=== PATIENT | female | born 1945 | race Caucasian/White ===

== ENCOUNTER 2020-09-25 17:32 | Outpatient (CLI) | payer MEDICARE, OTHER ==
[2020-09-25 18:17] LABS: #Basophils 0.1 10x3/uL (0.0-0.2); #Eosinphils 0.3 10x3/uL (0.0-0.5); #Monocytes 0.5 10x3/uL (0.0-1.1); #Neutrophils 5.3 10x3/uL (1.5-8.4); %Basophils 0.6 % (0.0-2.0); %Eosinophils 3.4 % (0.0-6.0); %Monocytes 6.1 % (0.0-10.0); %Neutrophils 67.6 % (40.0-75.0); Hemoglobin 11.7 g/dL (12.0-16.0); Mean Corpuscular HGB CONC 31.9 G/DL (32.0-36.0); Mean Corpuscular Hemoglobin 29.5 PG (27.0-33.0); Mean Corpuscular Volume 92.7 fl (80.0-100.0); Mean Platelet Volume 10.4 fl (7.4-10.4); Platelet Count 258 10x3/uL (130-400); RBC Distribution Width 13.1 % (11.5-14.5); Red Blood Cell (RBC) Count 3.96 10x6/uL (3.90-5.20); White Blood Cell (WBC) Count 7.8 10x3/uL (4.5-11.0)
[2020-09-25 18:28] LABS: Anion Gap 14 mmol/L (10-20); BUN (Urea Nitrogen) 25 mg/dL (9.8-20.1); Calc. Creatinine Clearance 0 mL/min (70-130); Calcium 9.7 mg/dL (7.8-10.44); Carbon Dioxide 27 mmol/L (23-31); Chloride 103 mmol/L (98-107); Glucose 89 mg/dL (83-110); Potassium 3.9 mmol/L (3.5-5.1); Sodium 140 mmol/L (136-145)
[2020-09-26 02:37] LABS: SARS-CoV-2 PCR by NAA Not Detected (NotDetected)
== END 2020-09-25 17:33 | disposition home or self-care (01) ==
LOC: LABBT 17:32
DX: Z01.818 Encounter for other preprocedural examination (principal); S62.102A Fracture of unspecified carpal bone, left wrist, initial encounter for closed fracture; M17.0 Bilateral primary osteoarthritis of knee; Z20.822 Contact with and (suspected) exposure to COVID-19
CPT/HCPCS: 80048; 85025; U0003; U0005; 87635; 93005; 93010

== ENCOUNTER 2020-09-29 06:01 | Day surgery (SDC) | payer MEDICARE, OTHER ==
[2020-09-26 11:08] VITALS: BMI 27.3
[2020-09-29] MEDS ORDERED: methylPREDNISolone Acetate 40 mg/ml Vial ONE (06:13)
[2020-09-29] MEDS ORDERED: Lidocaine 1% (PF) 30 ML VIAL ONE (06:13)
[2020-09-29] MEDS ORDERED: Fentanyl 100 MCG/2 ML VIAL ONE ×2 (06:26→06:56)
[2020-09-29] MEDS ORDERED: Midazolam HCl 2 mg/2 ml Vial ONE (06:56)
[2020-09-29] MEDS ORDERED: Ketorolac Tromethamine 30 MG/ML VIAL ONE (08:56)
[2020-09-29] MEDS ORDERED: Ondansetron PF 4 MG/2 ML Vial ONE (08:56)
[2020-09-29] MEDS ORDERED: PROPOFOL 200 MG/20 ML VIAL ONE (08:56)
[2020-09-29] MEDS ORDERED: Dexamethasone 20 MG/5 ML VIAL ONE (08:56)
[2020-09-29] MEDS ORDERED: Lidocaine 1% PF 5 ML VIAL ONE (08:56)
[2020-09-29] MEDS ORDERED: ePHEDrine 50 MG/ML VIAL ONE (08:56)
--- NOTE | 2020-09-29 09:16 | RAD ---
LEFT WRIST 3 VIEWS: HISTORY: ORIF. COMPARISON: Chest radiograph 09/22/2020. FINDINGS: Satisfactory appearance volar plate and screw fixation distal radius. IMPRESSION: Satisfactory postoperative appearance. POS: [facility]
[2020-09-29] MEDS ORDERED: Bupivacaine PF 0.5% 30 ML VIAL ONE (09:50)
--- NOTE | 2020-09-29 10:25 | OP ---
DATE OF PROCEDURE: 09/29/2020 PREOPERATIVE DIAGNOSES: 1. Left displaced closed extra-articular distal radius fracture. 2. Bilateral knee osteoarthrosis. POSTOPERATIVE DIAGNOSES: 1. Left displaced closed extra-articular distal radius fracture. 2. Bilateral knee osteoarthrosis. PROCEDURES PERFORMED: 1. Left distal radius open reduction and internal fixation. 2. Placement of short-arm volar splint, left upper extremity. 3. Bilateral knee corticosteroid injections. FLOWERS SALESPERSON: Prosper Decker PA-C The assistant auto center manager surgeon was present throughout the procedure to include the approach, reduction of the fracture, placement of hardware, and closure of the incision. He was also present during placement of the splint. ESTIMATED BLOOD LOSS: Minimal. COMPLICATIONS: None. ANESTHESIA: She did have a general anesthetic as well as a block. IMPLANTS: Include a Synthes distal radius plate with multiple screws and pegs. DISPOSITION: She did go to recovery room in stable condition. INDICATIONS: This is an active 75-year-old female, who fell and broke her wrist. It was felt to be in poor position. At this time, she wished to proceed with open reduction and internal fixation. The patient has a known history of bilateral knee osteoarthrosis and is also having severe pain and difficulty getting around. She would like injections at the same time. DESCRIPTION OF PROCEDURE: After all appropriate consent forms were explained and signed, she was taken back to the operative room and at this time, she was given a general anesthetic. Once the level of anesthesia was appropriate, we cleaned off both knees with alcohol and an injection comprised of 80 mg of Depo-Medrol and local was injected into each knee without any complication. Once this was done, Band-Aids were applied. We then turned our attention to the left upper extremity. A tourniquet was placed on the proximal arm and the left upper extremity was then prepped and draped in standard surgical fashion. The limb was exsanguinated and the tourniquet was taken up to 250 mmHg. Using loupe magnification, a 15 blade was used to make incision down through skin only. Bipolar cautery was used to coagulate any brisk venous bleeding. We then entered into the tendon sheath of the flexor carpi radialis sharply. The tendon was taken ulnarly and a new 15 blade was used to incise the floor of the FCR tendon sheath to gain access to our deeper tissues. The flexor pollicis longus tendon and muscle were noted, were freed, and taken ulnarly. This gave us direct access to the pronator quadratus. This was taken sharply off the bone and peeled ulnarly for later repair. Fracture was noted. Fracture was opened up. Clot was removed and irrigated and at this time, manual reduction was performed. At this time, we then applied a Synthes distal radius plate and pinned it into place. X-rays were taken to confirm placement. At this time one bicortical screw was placed along the shaft to hold this in place. We then placed 1 locking screw on our second row and 4 smooth pegs along our distal row to support the distal segment of the fracture. Two more cortical screws were placed proximally. Final x-rays were obtained in multiple planes to confirm reduction as well as making sure that the pins were not into the joint. Range of motion confirmed excellent range of motion with no crepitance. At this time, the wound was then thoroughly irrigated and dried. Deep Vicryls were used to secure the pronator over top of the plate as well as to close some soft tissue over the FCR. At this time, nylon sutures were used to close our incision. A bulky sterile soft tissue dressing was applied followed by placement of a short volar splint. The tourniquet was let down after the soft tissue dressing was applied and the fingers pinked up nicely. At this time, the patient was awakened and she was taken to recovery room in stable condition. All counts were correct at the end the case. She did receive preoperative IV antibiotics. Job ID: [id number]
== END 2020-09-29 10:33 | disposition home or self-care (01) ==
LOC: SDC 06:01
PROVIDERS: ATTEND Orthopaedic Surgery
PROC: 0PSJ04Z Reposition Left Radius with Internal Fixation Device, Open Approach (ICD-10-PCS; principal; 2020-09-29)
PROC: 0S9D3ZZ Drainage of Left Knee Joint, Percutaneous Approach (ICD-10-PCS; 2020-09-29)
PROC: 0S9C3ZZ Drainage of Right Knee Joint, Percutaneous Approach (ICD-10-PCS; 2020-09-29)
DX: S52.552A Other extraarticular fracture of lower end of left radius, initial encounter for closed fracture (principal); M17.0 Bilateral primary osteoarthritis of knee; Z79.899 Other long term (current) drug therapy
CPT/HCPCS: 20610; 25607; 73110; 76000; C1713 ×4; J0690; J1100; J1885; J2001; J2250; J2405; J2704; J2920; J3010; J3490; S0020

== ENCOUNTER 2022-12-06 05:35 | Observation (INO) | payer MEDICARE, OTHER ==
[2022-11-30 13:57] LABS: Bilirubin Neg (Negative); Blood, Urine Negative (Negative); Clarity Clear (Clear); Glucose, Urine (Dipstick) Normal (Negative); Ketone, Urine Negative (Negative); Leukocyte 25 (Negative); Nitrite Negative (Negative); Protein, Urine (Dipstick) Negative (Neg-Trace); Urobilinogen Normal mg/dL (Less than 2)
[2022-11-30 14:02] LABS: #Basophils 0.1 10x3/uL (0.0-0.2); #Eosinphils 0.2 10x3/uL (0.0-0.5); #Monocytes 0.6 10x3/uL (0.0-1.1); #Neutrophils 6.1 10x3/uL (1.5-8.4); %Basophils 0.8 % (0.0-2.0); %Eosinophils 2.1 % (0.0-6.0); %Lymphocytes 15.9 % (18.0-47.0); %Monocytes 7.5 % (0.0-10.0); %Neutrophils 73.3 % (40.0-75.0); Hemoglobin 13.5 g/dL (12.0-15.5); Mean Corpuscular HGB CONC 32.5 g/dL (32.0-36.0); Mean Corpuscular Hemoglobin 29.9 pg (27.0-33.0); Mean Platelet Volume 10.2 fl (7.4-10.4); Platelet Count 263 10x3/uL (150-450); RBC Distribution Width 13.6 % (11.5-14.5); Red Blood Cell (RBC) Count 4.51 10x6/uL (3.90-5.03); White Blood Cell (WBC) Count 8.3 10x3/uL (3.5-10.5)
[2022-11-30 14:12] LABS: INR-International Normal Ratio 0.9; Prothrombin Time 10.2 sec (9.5-12.1)
[2022-11-30 14:14] LABS: Anion Gap 15 mmol/L (10-20); BUN (Urea Nitrogen) 29 mg/dL (9.8-20.1); Calc. Creatinine Clearance 0 mL/min (70-130); Calcium 10.5 mg/dL (7.8-10.44); Carbon Dioxide 25 mmol/L (23-31); Chloride 103 mmol/L (98-107); Estimated GFR 56; Glucose 91 mg/dL (83-110); Potassium 4.1 mmol/L (3.5-5.1); Sodium 139 mmol/L (136-145)
[2022-12-02 11:28] VITALS: BMI 28.9
[2022-12-06] MEDS ORDERED: Tranexamic Acid 1,000 MG/10 ML VIAL ONE (05:49)
[2022-12-06] MEDS ORDERED: Sodium Chloride 0.9% 100 ML ONE ×2 (05:49→06:50)
[2022-12-06] MEDS ORDERED: Vancomycin 1 GM/200 ML (FROZEN) BAG ONE (05:49)
[2022-12-06] MEDS ORDERED: SUGAMMADEX SODIUM 200 MG/2 ML VIAL ONE (06:24)
[2022-12-06] MEDS ORDERED: Famotidine/PF 20 mg/2ml Vial ONE (06:24)
[2022-12-06] MEDS ORDERED: FENTANYL 50 MCG/ML 1 ML VIAL ONE ×5 (06:24→10:39)
[2022-12-06] MEDS ORDERED: Bupivacaine PF 0.5% 30 ML VIAL ONE ×2 (06:29→07:22)
[2022-12-06] MEDS ORDERED: methylPREDNISolone Acetate 40 mg/ml Vial ONE (06:29)
[2022-12-06] MEDS ORDERED: Lidocaine 1% (PF) 30 ML VIAL ONE (06:29)
[2022-12-06] MEDS ORDERED: CEFAZOLIN 2 GM VIAL ONE (06:50)
[2022-12-06] MEDS ORDERED: Midazolam HCl 2 mg/2 ml Vial ONE (06:59)
[2022-12-06] MEDS ORDERED: EPINEPHrine 1 MG/ML AMP ONE (07:22)
[2022-12-06] MEDS ORDERED: FENTANYL 50 MCG/ML 1 ML VIAL SLOW IVP PRN (07:26)
[2022-12-06] MEDS ORDERED: Ropivacaine 0.2% 550 ML 550 ML NERVE BLCK SCH (07:30)
[2022-12-06] MEDS ORDERED: traMADol HCl 50 MG TAB PO PRN ×2 (07:30)
[2022-12-06] MEDS ORDERED: Ondansetron PF 4 MG/2 ML Vial IVP PRN ×2 (07:30→07:44)
[2022-12-06] MEDS ORDERED: Promethazine HCl 25 MG/ML VIAL IM PRN ×3 (07:30→08:55)
[2022-12-06] MEDS ORDERED: Zolpidem Tartrate 5 MG TAB PO PRN ×2 (07:30→07:44)
[2022-12-06] MEDS ORDERED: HYDROcodone/Acetaminophen 10/325 mg Tablet PO PRN ×2 (07:30)
[2022-12-06] MEDS ORDERED: Dexamethasone 20 MG/5 ML VIAL ONE (07:39)
[2022-12-06] MEDS ORDERED: Ondansetron PF 4 MG/2 ML Vial ONE (07:39)
[2022-12-06] MEDS ORDERED: Lidocaine 1% PF 5 ML VIAL ONE (07:39)
[2022-12-06] MEDS ORDERED: PROPOFOL 200 MG/20 ML VIAL ONE (07:39)
[2022-12-06] MEDS ORDERED: Ketorolac Tromethamine 30 MG/ML VIAL ONE (07:39)
[2022-12-06] MEDS ORDERED: diphenhydrAMINE 25 MG CAP PO PRN (07:44)
[2022-12-06] MEDS ORDERED: Acetaminophen 325 MG TAB PO PRN (07:44)
[2022-12-06] MEDS ORDERED: Tranexamic Acid 1,000 MG in Sodium Chloride 0.9% 100 ML IVPB SCH (07:45)
[2022-12-06] MEDS ORDERED: fentaNYL PF 100 MCG/2 ML SYRINGE ONE (07:55)
[2022-12-06] MEDS ORDERED: Ondansetron HCl/PF 4 MG/2 ML Vial IVP PRN (08:55)
[2022-12-06] MEDS ORDERED: Meperidine HCl/PF 25 MG/ML VIAL SLOW IVP PRN (08:55)
[2022-12-06] MEDS ORDERED: Non-Formulary Item 1 EACH (Multivitamin [Multi-Vitamin Daily] 1 TABLET Tablet) PO SCH (09:00)
[2022-12-06] MEDS: Sodium Chloride 0.9% 1,000 ML IV SCH ×3 (14:07→19:54)
[2022-12-06] MEDS: Aspirin 81 mg Enteric Coated Tablet PO SCH ×2 (14:07→20:37)
[2022-12-06] MEDS: Senokot S 8.6-50 MG TAB PO SCH ×2 (14:08→20:37)
[2022-12-06] MEDS: Multivitamin W/ Minerals 1 TAB PO SCH (14:08)
[2022-12-06] MEDS: Ferrous Gluconate 324 MG TAB PO SCH ×2 (14:08→20:37)
[2022-12-06] MEDS: Ketorolac Tromethamine 30 MG/ML VIAL IVP SCH ×3 (14:11→20:36)
[2022-12-06] MEDS: CEFAZOLIN 2 GM in Sodium Chloride 0.9% 100 ML IVPB SCH ×2 (14:12→23:22)
[2022-12-06] MEDS ORDERED: Vancomycin 1 GM in Premix Bag 1 BAG IVPB SCH (18:00)
[2022-12-06] MEDS ORDERED: Aspirin Chewable 81 MG TAB PO SCH (21:00)
[2022-12-07] MEDS: Ketorolac Tromethamine 30 MG/ML VIAL IVP SCH ×2 (02:27→08:52)
[2022-12-07] MEDS: Sodium Chloride 0.9% 1,000 ML IV SCH (04:36)
[2022-12-07 05:33] LABS: Hemoglobin 10.7 g/dL (12.0-16.0); Mean Corpuscular HGB CONC 31.1 g/dL (32.0-36.0); Mean Corpuscular Hemoglobin 29.7 pg (27.0-31.0); Mean Corpuscular Volume 95.3 fl (78.0-98.0); Platelet Count 193 10x3/uL (130-400); RBC Distribution Width 12.1 % (11.5-14.5); Red Blood Cell (RBC) Count 3.62 mill/uL (4.20-5.40); White Blood Cell (WBC) Count 11.1 10x3/uL (4.8-10.8)
[2022-12-07] MEDS: Multivitamin W/ Minerals 1 TAB PO SCH (08:51)
[2022-12-07] MEDS: Ferrous Gluconate 324 MG TAB PO SCH (08:51)
[2022-12-07] MEDS: Aspirin 81 mg Enteric Coated Tablet PO SCH (08:52)
[2022-12-07] MEDS: Senokot S 8.6-50 MG TAB PO SCH (09:14)
[2022-12-07 11:30] VITALS: BP 113/63; TEMP 98.3
== END 2022-12-07 15:40 | disposition home or self-care (01) ==
LOC: SDC 05:35 → SJJU 07:44
PROVIDERS: ADMIT Orthopaedic Surgery; ATTEND Orthopaedic Surgery
PROC: 0SRD0J9 Replacement of Left Knee Joint with Synthetic Substitute, Cemented, Open Approach (ICD-10-PCS; principal; 2022-12-06)
PROC: 0S9C3ZZ Drainage of Right Knee Joint, Percutaneous Approach (ICD-10-PCS; 2022-12-06)
DX: M17.0 Bilateral primary osteoarthritis of knee (principal); G89.29 Other chronic pain; Z79.899 Other long term (current) drug therapy
CPT/HCPCS: 20610; 20985; 27447; 80048; 81003; 85025; 85027; 85610; 86850; 86900; 86901; 87081; 97110 ×2; 97116 ×2; 97530 ×2; A4306; J3010; J3370; 36415; 96374; 96375; 96376; C1713; C1776; G0378; J0171; J1030; J1100; J1885; J2001; J2250; J2405; J2704; J2795; J3490; J7050; S0020; S0028

== ENCOUNTER 2023-07-13 10:59 | Outpatient (CLI) | payer MEDICARE, OTHER | END 2023-07-13 11:00 | disposition home or self-care (01) | LOC: LABBT 10:59 | PROVIDERS: ATTEND Orthopaedic Surgery | DX: Z01.818 Encounter for other preprocedural examination (principal); M17.11 Unilateral primary osteoarthritis, right knee | CPT/HCPCS: 71046; 80048; 81003; 85025; 85610; 86850; 86900; 86901; 87081; 93005; 93010 ==

== ENCOUNTER 2023-07-18 05:35 | Observation (INO) | payer MEDICARE, OTHER ==
[2023-07-13 12:50] LABS: Bilirubin Neg (Negative); Blood, Urine Negative (Negative); Clarity Clear (Clear); Glucose, Urine (Dipstick) Normal (Negative); Ketone, Urine Negative (Negative); Leukocyte 25 (Negative); Nitrite Negative (Negative); Protein, Urine (Dipstick) Negative (Neg-Trace); Urobilinogen Normal mg/dL (Less than 2)
[2023-07-13 13:14] LABS: #Basophils 0.1 10x3/uL (0.0-0.2); #Eosinphils 0.2 10x3/uL (0.0-0.5); #Monocytes 0.7 10x3/uL (0.0-1.1); #Neutrophils 5.7 10x3/uL (1.5-8.4); %Basophils 0.7 % (0.0-2.0); %Eosinophils 2.5 % (0.0-6.0); %Lymphocytes 16.6 % (18.0-47.0); %Monocytes 9.1 % (0.0-10.0); %Neutrophils 70.9 % (40.0-75.0); Hematocrit 43.8 % (34.9-44.5); Hemoglobin 14.2 g/dL (12.0-15.5); Mean Corpuscular HGB CONC 32.4 g/dL (32.0-36.0); Mean Corpuscular Hemoglobin 30.1 pg (27.0-33.0); Mean Platelet Volume 10.3 fl (7.4-10.4); Platelet Count 250 10x3/uL (150-450); RBC Distribution Width 13.2 % (11.5-14.5); Red Blood Cell (RBC) Count 4.71 10x6/uL (3.90-5.03); White Blood Cell (WBC) Count 8.1 10x3/uL (3.5-10.5)
[2023-07-13 13:22] LABS: Prothrombin Time 10.3 sec (9.5-12.1)
[2023-07-13 13:40] LABS: Anion Gap 14 mmol/L (10-20); BUN (Urea Nitrogen) 13 mg/dL (9.8-20.1); Calc. Creatinine Clearance 0 mL/min (70-130); Calcium 10.1 mg/dL (7.8-10.44); Carbon Dioxide 25 mmol/L (23-31); Chloride 107 mmol/L (98-107); Estimated GFR 67; Glucose 88 mg/dL (83-110); Potassium 4.2 mmol/L (3.5-5.1); Sodium 142 mmol/L (136-145)
[2023-07-18] MEDS ORDERED: Sodium Chloride 0.9% 100 ML ONE ×2 (06:09→06:53)
[2023-07-18] MEDS ORDERED: Vancomycin 1 GM/200 ML (FROZEN) BAG ONE (06:09)
[2023-07-18] MEDS ORDERED: Tranexamic Acid 1,000 MG/10 ML VIAL ONE ×2 (06:09→09:49)
[2023-07-18] MEDS ORDERED: Bupivacaine 0.25% HCL 30 ML VIAL ONE (06:23)
[2023-07-18] MEDS ORDERED: Lidocaine 1% (PF) 30 ML VIAL ONE (06:43)
[2023-07-18] MEDS ORDERED: EPINEPHrine 1 MG/ML VIAL ONE (06:44)
[2023-07-18] MEDS ORDERED: Bupivacaine PF 0.5% 30 ML VIAL ONE (06:44)
[2023-07-18] MEDS ORDERED: Midazolam HCl 2 mg/2 ml Vial ONE (06:44)
[2023-07-18] MEDS ORDERED: fentaNYL 50 mcg/mL 1 mL Vial ONE ×4 (06:44→09:59)
[2023-07-18] MEDS ORDERED: CEFAZOLIN 2 GM VIAL ONE (06:53)
[2023-07-18] MEDS ORDERED: Zolpidem Tartrate 5 MG TAB PO PRN ×2 (07:22→08:00)
[2023-07-18] MEDS ORDERED: fentaNYL 50 mcg/mL 1 mL Vial SLOW IVP PRN ×2 (07:22→07:53)
[2023-07-18] MEDS ORDERED: Promethazine HCl 25 MG/ML VIAL IM PRN ×3 (07:22→09:16)
[2023-07-18] MEDS ORDERED: Ondansetron PF 4 MG/2 ML Vial IVP PRN ×2 (07:22→08:00)
[2023-07-18] MEDS ORDERED: traMADol HCl 50 MG TAB PO PRN ×3 (07:22→08:00)
[2023-07-18] MEDS ORDERED: HYDROcodone/Acetaminophen 10/325 mg Tablet PO PRN ×4 (07:22→08:00)
[2023-07-18] MEDS ORDERED: diphenhydrAMINE 25 MG CAP PO PRN (07:22)
[2023-07-18] MEDS ORDERED: Acetaminophen 325 MG TAB PO PRN (07:22)
[2023-07-18] MEDS ORDERED: Ondansetron PF 4 MG/2 ML Vial ONE (07:29)
[2023-07-18] MEDS ORDERED: PROPOFOL 200 MG/20 ML VIAL ONE (07:29)
[2023-07-18] MEDS ORDERED: Lidocaine 1% PF 5 ML VIAL ONE (07:29)
[2023-07-18] MEDS ORDERED: Tranexamic Acid 1,000 MG in Sodium Chloride 0.9% 100 ML IVPB SCH (07:30)
[2023-07-18] MEDS ORDERED: Vancomycin 1.5 GM in Sodium Chloride 0.9% 250 ML 300 ML IVPB SCH (07:30)
[2023-07-18] MEDS ORDERED: Ropivacaine 0.2% 550 ML 550 ML NERVE BLCK SCH (08:00)
[2023-07-18] MEDS ORDERED: Non-Formulary Item 1 EACH (Multivitamin [Multi-Vitamin Daily] 1 TABLET Tablet) PO SCH (09:00)
[2023-07-18] MEDS ORDERED: Ondansetron HCl/PF 4 MG/2 ML Vial IVP PRN (09:16)
[2023-07-18] MEDS: Cholecalciferol 1,000 UNITS (25 MCG) TAB PO SCH (12:24)
[2023-07-18] MEDS: Magnesium Oxide 400 MG TAB PO SCH (12:24)
[2023-07-18] MEDS: Ketorolac Tromethamine 30 MG/ML VIAL IVP SCH ×2 (12:31→18:13)
[2023-07-18] MEDS ORDERED: Ketorolac Tromethamine 30 MG/ML VIAL IVP SCH (14:00)
[2023-07-18] MEDS: CEFAZOLIN 2 GM in Sodium Chloride 0.9% 100 ML IVPB SCH (15:54)
[2023-07-18] MEDS ORDERED: Vancomycin (BATCH) 1.5 GM in Premix 1 BAG IVPB SCH (18:00)
[2023-07-18] MEDS: Sodium Chloride 0.9% 1,000 ML IV SCH (18:21)
[2023-07-18] MEDS ORDERED: Aspirin 81 mg Enteric Coated Tablet PO SCH (21:00)
[2023-07-18] MEDS: Aspirin 81 mg Enteric Coated Tablet PO SCH (21:36)
[2023-07-19] MEDS: Ketorolac Tromethamine 30 MG/ML VIAL IVP SCH ×3 (01:04→11:35)
[2023-07-19] MEDS: CEFAZOLIN 2 GM in Sodium Chloride 0.9% 100 ML IVPB SCH (01:04)
[2023-07-19] MEDS: Sodium Chloride 0.9% 1,000 ML IV SCH ×2 (03:42→13:16)
[2023-07-19 06:09] LABS: Hematocrit 34.1 % (36.0-47.0); Mean Corpuscular HGB CONC 32.3 g/dL (32.0-36.0); Mean Corpuscular Volume 92.9 fl (78.0-98.0); Mean Platelet Volume 10.3 fL (7.4-10.4); Platelet Count 204 10x3/uL (130-400); RBC Distribution Width 13.3 % (11.5-14.5); Red Blood Cell (RBC) Count 3.67 mill/uL (4.20-5.40)
[2023-07-19] MEDS ORDERED: Ferrous Gluconate 324 MG TAB PO SCH (08:00)
[2023-07-19] MEDS: Cholecalciferol 1,000 UNITS (25 MCG) TAB PO SCH (08:46)
[2023-07-19] MEDS: Magnesium Oxide 400 MG TAB PO SCH (08:46)
[2023-07-19] MEDS: Aspirin 81 mg Enteric Coated Tablet PO SCH (08:46)
[2023-07-19] MEDS ORDERED: Senokot S 8.6-50 MG TAB PO SCH (09:00)
[2023-07-19] MEDS ORDERED: Multivitamin W/ Minerals 1 TAB PO SCH (09:00)
[2023-07-19 12:02] VITALS: BP 119/77; TEMP 98.7
== END 2023-07-19 15:01 | disposition home or self-care (01) ==
LOC: SDC 05:35 → SURG A 10:59
PROVIDERS: ADMIT Orthopaedic Surgery; ATTEND Orthopaedic Surgery
PROC: 0SRC0JZ Replacement of Right Knee Joint with Synthetic Substitute, Open Approach (ICD-10-PCS; principal; 2023-07-18)
DX: M17.11 Unilateral primary osteoarthritis, right knee (principal); Z96.652 Presence of left artificial knee joint; Z88.0 Allergy status to penicillin; Z98.890 Other specified postprocedural states; Z79.899 Other long term (current) drug therapy
CPT/HCPCS: 27447; 80048; 81003; 85025; 85027; 85610; 86850; 86900; 86901; 87081; 97110 ×2; 97116 ×2; 97530; A4306; C1776; J0171; J3010; J3370 ×2; 36415; J1885; J2001; J2250; J2405; J2704; J2795; J3490; S0020